=== PATIENT | female | born 1955 | race Caucasian/White ===

== ENCOUNTER → 2017-10-31 | Outpatient (CLI) | payer OTHER, BC ==
[~2017-10-31] MED LIST: ANESTROZOLE PO; ANTIVERT25 MG PO; ASCORBIC ACID500 M3 PO; ASPIRIN EC325 MG PO; BETA CAROT10000 UNIT PO; BIOTIN 5000MCG PO; BISACODYL5 MG PO; CALCIUM 500 MG1 EACH PO; CARAFATE1 GM PO; CARAFATE100 MG/ML PO; CHEWABLE MULTI1 EACH PO; CITALOPRAM HBR40 MG PO; CITRACAL D + H1 EACH PO; COMPLETE M9 MG/15 ML PO; DEXAMETHASONE4 MG PO; ENDOCET 5-3251 EACH PO; EPA-DHA 720 SO1 EACH PO; FASLODEX250 MG/5 M IM; FERROUS SULFAT325 MG PO; FISH OIL 1,0001 EAC7 PO; FISH OIL 1,2001 EAC4 PO; GLUTAMINE500 MG PO; IRON 21/7 TABL1 EACH PO; LANSOPRAZOLE30 MG PO; LIPOFEN PO; LOPRESSOR25 MG PO; LOVENOX40 MG/0.4 SC; MELATONIN1 MG PO; MULTICHEW CHEW1 EACH PO; ONDANSETRON HCL8 MG PO; PANTOPRAZOLE SO40 MG PO; PROTONIX40 MG PO; Prevacid PO; Relafen PO; SHARK FIN CART500 MG PO; TRICOR145 MG PO; VITAFUSION PO; VITAMIN B COMP1 EACH PO; VITAMIN B12-FO1 EACH PO; VITAMIN C250 M1 PO; VITAMIN D2000 INTUN PO; VITAMIN D32000 UNI1 PO; VOLTAREN 1% GE100 GM TP; Vicodin,Norco 5/325 PO; WELCHOL625 MG PO; XANAX0.5 MG PO; ZANTAC150 MG PO; Zantac PO; celeBREX PO; celeXA PO
== END | disposition home or self-care (01) ==
DX: R26.2 Difficulty in walking, not elsewhere classified (principal); M25.562 Pain in left knee; M25.662 Stiffness of left knee, not elsewhere classified; M62.81 Muscle weakness (generalized); M17.12 Unilateral primary osteoarthritis, left knee; Z74.1 Need for assistance with personal care
CPT/HCPCS: 97161 GP; 97165 GO; 97530 GP; 97537 GO; G8978 GP; G8979 GP; G8980 GP; G8987 GO; G8988 GO; G8989 GO

== ENCOUNTER 2017-12-10 22:02 | Inpatient (IN) | payer OTHER, BC ==
[~2017-12-10] VITALS: Ht 162.6 cm; Wt 74.8 kg
[~2017-12-10 22:02] MED LIST changes: +CYMBALTA30 MG PO; +HYDROCHLOROTHIA25 MG PO; +IBRANCE125 MG PO; +MULTI VITAMIN1 EACH PO; +RECLAST5 MG/100 M IV; +[UNRECOGNIZED DRUG - OTHER] IV
[2017-12-11 07:33] VITALS: BP 117/63
[2017-12-11 13:18] LABS: HEMATOCRIT 38.8 % (36.0-46.0); MCH 32.3 PG (29.0-34.0); MCHC 33.5 G/DL (30.0-36.0); MCV 96.3 FL (83-99); PLATELET COUNT 258 K/uL (156-360); RBC DIS.WIDTH-CV 13.5 % (11.8-14.6); RBC DIS.WIDTH-SD 48.3 % (39-53); RED BLOOD COUNT 4.03 M/uL (3.80-5.20); WHITE BLOOD COUNT 9.7 K/uL (4.1-10.2)
[2017-12-11 13:49] VITALS: BP 143/86
[2017-12-11 15:45] VITALS: BP 117/74
[2017-12-11 19:53] VITALS: BP 139/79
[2017-12-12 00:11] VITALS: BP 131/86
[2017-12-12 04:03] VITALS: BP 137/73
[2017-12-12 06:05] LABS: HEMATOCRIT 33.7 % (36.0-46.0); HEMOGLOBIN 11.5 G/DL (11.9-15.5); MCV 92.8 FL (83-99)
[2017-12-12 06:24] LABS: CHLORIDE 103 MEQ/L (99-109); CREATININE 0.6 MG/DL (0.6-1.3); GFR ESTIMATE (CALCULATED) > 59 mL/min/; GLUCOSE 139 mg/dL (70-99); POTASSIUM 3.7 MEQ/L (3.7-5.4); SODIUM 134 MEQ/L (136-147); UREA NITROGEN (BUN) 5 mg/dL (9-23)
[2017-12-12 07:35] VITALS: BP 135/75
[2017-12-12 11:34] VITALS: BP 150/68
[2017-12-12 15:39] VITALS: BP 113/82
[2017-12-12 20:02] VITALS: BP 126/77
[2017-12-13 00:03] VITALS: BP 130/79
[2017-12-13 04:05] VITALS: BP 115/63
[2017-12-13 06:56] LABS: HEMATOCRIT 32.7 % (36.0-46.0); MCV 92.6 FL (83-99)
[2017-12-13 08:00] VITALS: BP 139/65
[2017-12-13] MEDS ORDERED: SENNA PLUS TAB1 EACH PO (08:55)
[2017-12-13] MEDS ORDERED: LOVENOX40 MG/0.4 SC (08:56)
[2017-12-13] MEDS ORDERED: ENDOCET 5-3251 EACH PO (08:56)
[2017-12-13] MEDS ORDERED: CELECOXIB200 MG PO (08:56)
[2017-12-13 11:37] VITALS: BP 126/76
== END 2017-12-13 15:19 | DRG 470 ==
LOC: ENRESERV 22:02 → 2SOUTH 12-11 06:16 → 3WEST 12-11 13:39 → 2SOUTH 12-11 15:21 → 3WEST 12-13 15:19
PROVIDERS: Orthopaedic Surgery
PROC: 0SRD0J9 Replacement of Left Knee Joint with Synthetic Substitute, Cemented, Open Approach (ICD-10-PCS; principal; 2017-12-11)
DX: M17.12 Unilateral primary osteoarthritis, left knee (principal); C79.51 Secondary malignant neoplasm of bone; I10 Essential (primary) hypertension; K21.9 Gastro-esophageal reflux disease without esophagitis; F41.9 Anxiety disorder, unspecified; E66.9 Obesity, unspecified; E78.5 Hyperlipidemia, unspecified; Z96.651 Presence of right artificial knee joint; Z82.49 Family history of ischemic heart disease and other diseases of the circulatory system; Z90.49 Acquired absence of other specified parts of digestive tract; Z98.84 Bariatric surgery status; Z85.3 Personal history of malignant neoplasm of breast; Z68.30 Body mass index [BMI] 30.0-30.9, adult; Z80.0 Family history of malignant neoplasm of digestive organs
CPT/HCPCS: 73560; 80048; 85014; 85018; 85027; 86850; 86870; 86900; 86901; 86905; 86920; C1713; J0690; J1170; J1650; J2250; J2405; J2795; J3010; J7050

== ENCOUNTER 2018-01-16 16:06 | Inpatient (IN) | payer OTHER, BC ==
[~2018-01-16] VITALS: Ht 160 cm; Wt 67.7 kg
[~2018-01-16 16:06] MED LIST changes: +CELECOXIB200 MG PO; +SENNA PLUS TAB1 EACH PO
[2018-01-16 17:18] LABS: HEMATOCRIT 32.4 % (36.0-46.0); HEMOGLOBIN 11.7 G/DL (11.9-15.5); MCH 30.8 PG (29.0-34.0); MCHC 36.1 G/DL (30.0-36.0); MCV 85.3 FL (83-99); PLATELET COUNT 162 K/uL (156-360); RBC DIS.WIDTH-CV 14.7 % (11.8-14.6); RBC DIS.WIDTH-SD 44.9 % (39-53); WHITE BLOOD COUNT 2.6 K/uL (4.1-10.2)
[2018-01-16 17:30] LABS: ALBUMIN 3.7 g/dL (3.2-4.8); CHLORIDE 105 mEq/L (99-109); POTASSIUM 2.7 mEq/L (3.7-5.4); SODIUM 134 mEq/L (136-147)
[2018-01-16 17:32] LABS: GLUCOSE 91 mg/dL (70-99); TOTAL PROTEIN 6.3 g/dL (6.4-8.3)
[2018-01-16 17:34] LABS: TOTAL BILIRUBIN 0.7 mg/dL (0.0-1.0)
[2018-01-16 17:36] LABS: APPEARANCE CLEAR ((CLEAR)); BILIRUBIN NEGATIVE; BLOOD SMALL; COLOR YELLOW ((YELLOW)); GLUCOSE (STRIP) NEGATIVE; KETONES 20; LEUKOCYTES LARGE; NITRITE NEGATIVE; PROTEIN (STRIP) NEGATIVE; SPECIFIC GRAVITY 1.006 (1.000-1.030); UROBILINOGEN 0.2 MG/DL (0.2-1.0)
[2018-01-16 17:36] LABS: ALKALINE PHOSPHATASE 91 IU/L (3-129); CREATININE 0.6 mg/dL (0.6-1.3); GFR ESTIMATE (CALCULATED) > 59 mL/min/
[2018-01-16 17:37] LABS: UREA NITROGEN (BUN) 6 mg/dL (9-23)
[2018-01-16 17:38] LABS: AST (GOT) 14 IU/L (2-34)
[2018-01-16 17:39] LABS: ALT (GPT) 16 IU/L (3-49); LIPASE 69 U/L (1.0-51.0)
[2018-01-16 17:40] LABS: BACTERIA NONE SEEN /HPF; EPITHELIAL CELLS RARE /HPF; MUCUS NONE SEEN /LPF; RED BLOOD CELLS 0-5 /HPF (0-5); UCUL ADDED? YES; WHITE BLOOD CELLS 40-50 /HPF (0-5)
[2018-01-16 17:41] LABS: TROP-I INTERPRETATION NEGATIVE; TROPONIN-I < 0.01 ng/mL (0.0-0.30)
[2018-01-16 18:07] LABS: ABS NEUTROPHIL COUNT 1.5; ANISOCYTOSIS 1+; ATYPICAL LYMPHOCYTE 6.1 %; BAND NEUTROPHILS 29.6 % (0-8.0); BASOPHILS 0.9 %; EOSINOPHIL ABS CT 0.1; EOSINOPHILS 2.6 % (0-5.0); MICROCYTOSIS 1+; MONOCYTES 6.9 % (0-9.0); OVALOCYTES 1+; PLAT.SUFFICIENCY ADEQUATE; POIKILOCYTOSIS 1+; SEG.NEUTROPHILS 26.9 % (46.0-76.0)
[2018-01-16] MEDS ORDERED: DULOXETINE HCL30 MG PO (21:10)
[2018-01-16] MEDS ORDERED: COMPAZINE10 MG PO (21:11)
[2018-01-16 23:15] LABS: HEMATOCRIT 29.4 % (36.0-46.0); HEMOGLOBIN 10.6 G/DL (11.9-15.5); MCH 30.7 PG (29.0-34.0); MCHC 36.1 G/DL (30.0-36.0); MCV 85.2 FL (83-99); PLATELET COUNT 159 K/uL (156-360); RBC DIS.WIDTH-CV 14.7 % (11.8-14.6); RBC DIS.WIDTH-SD 44.9 % (39-53); RED BLOOD COUNT 3.45 M/uL (3.80-5.20); WHITE BLOOD COUNT 2.3 K/uL (4.1-10.2)
[2018-01-16 23:46] LABS: BASOPHIL (%) 0.9 % (0-1); EOSINOPHIL (%) 1.7 % (0-5); IMMATURE GRANULOCYTE (%) 0.4 % (0.0-0.7); LYMPHOCYTE (%) 36.1 % (15-42); LYMPHOCYTE COUNT 0.8 K/uL (1.0-2.8); MONOCYTE COUNT 0.3 K/uL (0-0.8); NEUTROPHIL (%) 48.9 % (45-76); NEUTROPHIL COUNT 1.1 K/uL (1.8-6.4)
[2018-01-17] VITALS (7 sets, daily range): BP systolic 99–110; BP diastolic 60–72
[2018-01-17 01:15] LABS: C DIFF TOXIN NEGATIVE (NEGATIVE)
[2018-01-17 02:39] LABS: HEMATOCRIT 31.8 % (36.0-46.0); HEMOGLOBIN 11.5 G/DL (11.9-15.5); MCH 30.9 PG (29.0-34.0); MCHC 36.2 G/DL (30.0-36.0); MCV 85.5 FL (83-99); PLATELET COUNT 170 K/uL (156-360); RBC DIS.WIDTH-CV 14.9 % (11.8-14.6); RBC DIS.WIDTH-SD 45.3 % (39-53); RED BLOOD COUNT 3.72 M/uL (3.80-5.20); WHITE BLOOD COUNT 2.7 K/uL (4.1-10.2)
[2018-01-17 02:51] LABS: CHLORIDE 109 mEq/L (99-109); SODIUM 138 mEq/L (136-147)
[2018-01-17 02:52] LABS: GLUCOSE 89 mg/dL (70-99)
[2018-01-17 02:56] LABS: CREATININE 0.6 mg/dL (0.6-1.3); GFR ESTIMATE (CALCULATED) > 59 mL/min/
[2018-01-17 02:57] LABS: UREA NITROGEN (BUN) 5 mg/dL (9-23)
[2018-01-18] VITALS (7 sets, daily range): BP systolic 84–99; BP diastolic 51–66
[2018-01-18 16:01] LABS: HEMATOCRIT 29.7 % (36.0-46.0); HEMOGLOBIN 10.6 G/DL (11.9-15.5); MCH 30.8 PG (29.0-34.0); MCHC 35.7 G/DL (30.0-36.0); MCV 86.3 FL (83-99); PLATELET COUNT 171 K/uL (156-360); RBC DIS.WIDTH-CV 15.2 % (11.8-14.6); RBC DIS.WIDTH-SD 47.4 % (39-53); RED BLOOD COUNT 3.44 M/uL (3.80-5.20)
[2018-01-18 16:13] LABS: CHLORIDE 108 MEQ/L (99-109); POTASSIUM 3.2 MEQ/L (3.7-5.4); SODIUM 138 MEQ/L (136-147)
[2018-01-18 16:18] LABS: CREATININE 0.4 MG/DL (0.6-1.3); GFR ESTIMATE (CALCULATED) > 59 mL/min/; GLUCOSE 93 mg/dL (70-99); UREA NITROGEN (BUN) 2 mg/dL (9-23)
[2018-01-18 16:29] LABS: ABS NEUTROPHIL COUNT 1.6; ANISOCYTOSIS 1+; ATYPICAL LYMPHOCYTE 2.6 %; BAND NEUTROPHILS 6.1 % (0-8.0); BASOPHILS 1.8 %; EOSINOPHIL ABS CT 0.1; EOSINOPHILS 2.6 % (0-5.0); LYMPHOCYTES 32.5 % (15.0-45.0); MICROCYTOSIS 1+; MONOCYTES 6.2 % (0-9.0); NUCLEATED RBC'S 0.9; PLAT.SUFFICIENCY ADEQUATE; SEG.NEUTROPHILS 48.2 % (46.0-76.0)
[2018-01-19 04:13] VITALS: BP 103/64
[2018-01-19 05:59] LABS: HEMOGLOBIN 9.5 G/DL (11.9-15.5); MCH 30.2 PG (29.0-34.0); MCHC 35.2 G/DL (30.0-36.0); MCV 85.7 FL (83-99); PLATELET COUNT 156 K/uL (156-360); RBC DIS.WIDTH-CV 14.8 % (11.8-14.6); RBC DIS.WIDTH-SD 46.3 % (39-53); RED BLOOD COUNT 3.15 M/uL (3.80-5.20); WHITE BLOOD COUNT 2.8 K/uL (4.1-10.2)
[2018-01-19 06:38] LABS: CHLORIDE 108 MEQ/L (99-109); CREATININE 0.4 MG/DL (0.6-1.3); GFR ESTIMATE (CALCULATED) > 59 mL/min/; GLUCOSE 88 mg/dL (70-99); POTASSIUM 3.2 MEQ/L (3.7-5.4); SODIUM 140 MEQ/L (136-147); UREA NITROGEN (BUN) < 2 mg/dL (9-23)
[2018-01-19 06:54] LABS: ABS NEUTROPHIL COUNT 1.6; ANISOCYTOSIS 2+; ATYPICAL LYMPHOCYTE 2.6 %; BAND NEUTROPHILS 3.5 % (0-8.0); BASOPHILS 2.6 %; EOSINOPHIL ABS CT 0; MACROCYTES 1+; METAMYELOCYTES 2.6 %; MICROCYTOSIS 1+; MONOCYTES 6.9 % (0-9.0); OVALOCYTES 1+; PLAT.SUFFICIENCY ADEQUATE; POIKILOCYTOSIS 1+; POLYCHROMASIA 1+; SEG.NEUTROPHILS 54.8 % (46.0-76.0); TEAR DROP CELLS 1+
[2018-01-19 07:02] VITALS: BP 113/72
[2018-01-19 11:10] VITALS: BP 112/78
[2018-01-19] MEDS ORDERED: IMODIUM A-D2 M2 PO (13:14)
== END 2018-01-19 14:41 | disposition home or self-care (01) | DRG 392 ==
LOC: EME 16:06 → 2EAST 21:59 → EDOF 21:59 → ENRESERV 22:00 → 2EAST 23:29 → ENPENDDIS 01-19 → 2EAST 01-19 14:41
PROVIDERS: Emergency Medicine; Hospitalist; Internal Medicine
DX: R19.7 Diarrhea, unspecified (principal); E86.0 Dehydration; E87.6 Hypokalemia; N39.0 Urinary tract infection, site not specified; C78.7 Secondary malignant neoplasm of liver and intrahepatic bile duct; D64.9 Anemia, unspecified; D70.9 Neutropenia, unspecified; I95.9 Hypotension, unspecified; R26.9 Unspecified abnormalities of gait and mobility; R53.1 Weakness; I47.1 Supraventricular tachycardia; K57.90 Diverticulosis of intestine, part unspecified, without perforation or abscess without bleeding; I10 Essential (primary) hypertension; E78.1 Pure hyperglyceridemia; G47.30 Sleep apnea, unspecified; F41.9 Anxiety disorder, unspecified; K21.9 Gastro-esophageal reflux disease without esophagitis; M19.90 Unspecified osteoarthritis, unspecified site; Z82.3 Family history of stroke; Z82.49 Family history of ischemic heart disease and other diseases of the circulatory system; Z85.3 Personal history of malignant neoplasm of breast; Z92.21 Personal history of antineoplastic chemotherapy; Z96.659 Presence of unspecified artificial knee joint; Z98.84 Bariatric surgery status
CPT/HCPCS: 70450; 74177; 80048; 80053; 81003; 83605; 83690; 83735; 84132; 84484; 85025; 85025 91; 85027; 87040; 87077; 87086; 87177; 87186; 87206; 87493; 87506; 93005; 99281; 99285; J0696; J1644; J2405; J3480; J7030